=== PATIENT | male | born 1960 | race Caucasian/White ===

== ENCOUNTER → 2016-08-31 | Emergency (ER) | payer OTHER ==
[~2016-08-31] VITALS: Ht 177.8 cm; Wt 90.7 kg
[~2016-08-31] MED LIST: BACL10TA PO; CITA10TA70 PO; LORazepam 0.5 MG TAB PO ONE; MELO-85 PO; METF500T PO; NAPR-591 PO; NITR-48 PO; OLAN2.5T32 PO; OLANZapine 5 MG TAB PO ONE; TRAZ100T2 PO
[2016-08-31 22:31] LABS: Basophils # (auto) 0.1 uL; Basophils % (auto) 1.3 % (0.0-2.0); Eosinophils # (auto) 0.2 uL; Eosinophils % (auto) 2.4 % (0.0-7.0); Hematocrit 44.2 % (41.0-53.0); Hemoglobin 14.4 g/dL (13.5-17.5); Lymphocytes # (auto) 2.4 uL; Lymphocytes % (auto) 31.9 % (10.0-50.0); Mean Corpuscular Hemoglobin 28.1 pg (28.0-32.0); Mean Corpuscular Hgb Conc. 32.5 g/dL (32.0-36.0); Mean Corpuscular Volume 86.5 fL (80.0-100.0); Mean Platelet Volume 8.2 fL (7.4-10.4); Monocytes # (auto) 0.7 uL; Monocytes % (auto) 9.9 % (0.0-12.0); Neutrophils % (auto) 54.5 % (37.0-80.0); Platelet Count (auto) 353 10^3/uL (140-450); Red Cell Distribution Width 17.6 % (11.6-16.0); White Blood Cell 7.4 10^3/uL (4.4-10.8)
[2016-08-31 22:39] LABS: Urine Bilirubin Negative (Negative); Urine Blood Negative /uL (Negative); Urine Color Yellow (Yellow); Urine Glucose Normal (Normal); Urine Ketone Negative (Negative); Urine Mucus FEW (None Seen); Urine Nitrite Negative (Negative); Urine RBC 3 /hpf (0 - 3); Urine Squamous Epithelial Cell FEW /hpf (<5); Urine Urobilinogen Normal (Negative); Urine pH 7.5 (5.0-8.0)
[2016-08-31 22:53] LABS: Acetaminophen < 2.0 ug/mL (10-30); Albumin 3.6 g/dL (3.4-5.0); Alkaline Phosphatase 95 U/L (45-117); Anion Gap 10 (5-15); Aspartate Aminotransferase 28 U/L (15-37); BUN/Creatinine Ratio 7.5; Bilirubin, Total 0.2 mg/dL (0.2-1.0); Blood Urea Nitrogen 8 mg/dL (7-18); Carbon Dioxide 27 mmol/L (21-32); Chloride 103 mmol/L (98-107); GFR African American 92 mL/min; GFR Non-African American 76 mL/min; Glucose 97 mg/dL (74-106); Potassium 3.9 mmol/L (3.5-5.1); Sodium 140 mmol/L (136-145); Total Protein 7.9 g/dL (6.4-8.2)
[2016-09-03 21:58] VITALS: BP 128/79
== END | disposition home or self-care (01) ==
LOC: ER 21:12
DX: F32.9 Major depressive disorder, single episode, unspecified (principal); F20.9 Schizophrenia, unspecified
CPT/HCPCS: 36415; 80053; 80320; 80329; 81001; 85025; 99284; G0434

== ENCOUNTER 2016-10-14 17:01 | Emergency (ER) | payer OTHER ==
[~2016-10-14] VITALS: Ht 177.8 cm; Wt 90.7 kg
[~2016-10-14 17:01] MED LIST changes: -LORazepam 0.5 MG TAB PO ONE; -NAPR-591 PO; -OLANZapine 5 MG TAB PO ONE
[2016-10-14 18:37] LABS: Basophils # (auto) 0.1 uL; Basophils % (auto) 1.2 % (0.0-2.0); Eosinophils # (auto) 0 uL; Eosinophils % (auto) 0.3 % (0.0-7.0); Hematocrit 45.6 % (41.0-53.0); Hemoglobin 14.9 g/dL (13.5-17.5); Lymphocytes # (auto) 1.7 uL; Lymphocytes % (auto) 17.2 % (10.0-50.0); Mean Corpuscular Hemoglobin 27.9 pg (28.0-32.0); Mean Corpuscular Hgb Conc. 32.7 g/dL (32.0-36.0); Mean Corpuscular Volume 85.4 fL (80.0-100.0); Mean Platelet Volume 8.2 fL (7.4-10.4); Monocytes # (auto) 0.7 uL; Monocytes % (auto) 7.4 % (0.0-12.0); Neutrophils # (auto) 7.1 uL; Neutrophils % (auto) 73.9 % (37.0-80.0); Platelet Count (auto) 284 10^3/uL (140-450); Red Cell Distribution Width 16.4 % (11.6-16.0); White Blood Cell 9.6 10^3/uL (4.4-10.8)
[2016-10-14 18:55] LABS: Salicylate 1.9 mg/dL (2.8-20.0)
[2016-10-14 18:56] LABS: Acetaminophen < 2.0 ug/mL (10-30)
[2016-10-14 18:59] LABS: Albumin 3.9 g/dL (3.4-5.0); BUN/Creatinine Ratio 9.4; Bilirubin, Total 0.3 mg/dL (0.2-1.0); Potassium 3.8 mmol/L (3.5-5.1)
[2016-10-15] MEDS ORDERED: MVI in SODIUM CHLORIDE 0.9% 1,010 ML IV ONE (04:12)
[2016-10-15] MEDS ORDERED: THIAMINE HCL 100 MG/ML 2ML VIAL IV ONE (04:15)
[2016-10-15] MEDS: MAGNESIUM SULFATE 1GM/100ML 100 ML IV SCH ×2 (04:52→05:15)
[2016-10-16] MEDS ORDERED: LORazepam 0.5 MG TAB PO ONE (15:45)
[2016-10-17] MEDS ORDERED: ACETAMINOPHEN/CODEINE#3 (300/30mg) TAB PO ONE (23:30)
[2016-10-18 11:30] VITALS: BP 136/84
== END 2016-10-18 11:32 | disposition home or self-care (01) ==
LOC: EDBD 17:01 → ER 17:11
DX: R45.851 Suicidal ideations (principal); F32.9 Major depressive disorder, single episode, unspecified; F10.120 Alcohol abuse with intoxication, uncomplicated; F41.9 Anxiety disorder, unspecified; F15.10 Other stimulant abuse, uncomplicated; F20.89 Other schizophrenia
CPT/HCPCS: 36415; 80053; 80307; 80320; 80329; 85025; 96361; 96374; 99285; J3411; J3475; J7030

== ENCOUNTER 2016-10-30 18:22 | Emergency (ER) | payer OTHER ==
[~2016-10-30] VITALS: Ht 177.8 cm; Wt 90.7 kg
[2016-10-30 19:57] LABS: Basophils # (auto) 0.1 uL; Basophils % (auto) 1.1 % (0.0-2.0); Eosinophils # (auto) 0 uL; Eosinophils % (auto) 0.3 % (0.0-7.0); Hematocrit 45.3 % (41.0-53.0); Hemoglobin 15.2 g/dL (13.5-17.5); Lymphocytes # (auto) 2.4 uL; Mean Corpuscular Hemoglobin 28.5 pg (28.0-32.0); Mean Corpuscular Hgb Conc. 33.4 g/dL (32.0-36.0); Mean Corpuscular Volume 85.3 fL (80.0-100.0); Mean Platelet Volume 8.2 fL (7.4-10.4); Monocytes # (auto) 0.8 uL; Monocytes % (auto) 7.1 % (0.0-12.0); Neutrophils # (auto) 7.6 uL; Neutrophils % (auto) 69.5 % (37.0-80.0); Platelet Count (auto) 425 10^3/uL (140-450); Red Cell Distribution Width 16.4 % (11.6-16.0); White Blood Cell 10.9 10^3/uL (4.4-10.8)
[2016-10-30 20:32] LABS: Albumin 4.4 g/dL (3.4-5.0); Alkaline Phosphatase 91 U/L (45-117); Anion Gap 13 (5-15); Aspartate Aminotransferase 56 U/L (15-37); BUN/Creatinine Ratio 12.8; Bilirubin, Total 0.9 mg/dL (0.2-1.0); Blood Urea Nitrogen 12 mg/dL (7-18); Calcium 9.1 mg/dL (8.5-10.1); Carbon Dioxide 20 mmol/L (21-32); Chloride 101 mmol/L (98-107); GFR African American 107 mL/min; GFR Non-African American 88 mL/min; Glucose 93 mg/dL (74-106); Potassium 3.7 mmol/L (3.5-5.1); Sodium 134 mmol/L (136-145); Total Protein 8.7 g/dL (6.4-8.2)
[2016-10-30] MEDS ORDERED: diphenhdrAMINE HCL 50 MG/1 ML VL ONE (21:05)
[2016-10-30] MEDS ORDERED: HALOPERIDOL LACTATE 5 MG/ML INJ VIAL ONE (21:05)
[2016-10-30] MEDS ORDERED: LORazepam 2MG/ML-1ML VIAL ONE (21:05)
[2016-10-30] MEDS ORDERED: diphenhdrAMINE HCL 50 MG/1 ML VL IM ONE (21:30)
[2016-10-30] MEDS ORDERED: LORazepam 2MG/ML-1ML VIAL IM ONE (21:30)
[2016-10-30] MEDS ORDERED: HALOPERIDOL LACTATE 5 MG/ML INJ VIAL IM ONE (21:30)
[2016-10-31 08:05] VITALS: BP 143/69
== END 2016-10-31 08:10 | disposition home or self-care (01) ==
LOC: EDBD 18:22 → ER 18:30
DX: F41.9 Anxiety disorder, unspecified (principal); I25.10 Atherosclerotic heart disease of native coronary artery without angina pectoris; E11.9 Type 2 diabetes mellitus without complications; I10 Essential (primary) hypertension; F15.10 Other stimulant abuse, uncomplicated; R45.1 Restlessness and agitation; Z79.899 Other long term (current) drug therapy; R52 Pain, unspecified
CPT/HCPCS: 36415; 71020; 80053; 84484; 85025; 93005; 96372; 99285; J1200; J1630; J2060

== ENCOUNTER 2016-11-01 20:45 | Emergency (ER) | payer OTHER ==
[~2016-11-01] VITALS: Ht 177.8 cm; Wt 90.7 kg
[2016-11-01 22:00] LABS: Basophils # (auto) 0.1 uL; Eosinophils # (auto) 0.1 uL; Eosinophils % (auto) 1.1 % (0.0-7.0); Lymphocytes # (auto) 1.8 uL; Lymphocytes % (auto) 16.4 % (10.0-50.0); Mean Corpuscular Hemoglobin 28.2 pg (28.0-32.0); Mean Corpuscular Hgb Conc. 32.6 g/dL (32.0-36.0); Mean Corpuscular Volume 86.5 fL (80.0-100.0); Mean Platelet Volume 8.7 fL (7.4-10.4); Monocytes # (auto) 1.2 uL; Monocytes % (auto) 10.7 % (0.0-12.0); Neutrophils # (auto) 7.8 uL; Neutrophils % (auto) 70.8 % (37.0-80.0); Platelet Count (auto) 493 10^3/uL (140-450); Red Cell Distribution Width 16.6 % (11.6-16.0)
[2016-11-01 22:15] LABS: Amylase 40 U/L (25-115); Anion Gap 15 (5-15); Aspartate Aminotransferase 78 U/L (15-37); BUN/Creatinine Ratio 13.8; Blood Urea Nitrogen 15 mg/dL (7-18); Calcium 9.4 mg/dL (8.5-10.1); Carbon Dioxide 16 mmol/L (21-32); Chloride 110 mmol/L (98-107); GFR African American 90 mL/min; GFR Non-African American 74 mL/min; Glucose 119 mg/dL (74-106); Potassium 4.4 mmol/L (3.5-5.1); Sodium 141 mmol/L (136-145)
[2016-11-01 22:21] LABS: Alkaline Phosphatase 90 U/L (45-117); Bilirubin, Total 0.9 mg/dL (0.2-1.0); Total Protein 8.7 g/dL (6.4-8.2)
[2016-11-01 22:53] VITALS: BP 139/86
[2016-11-01] MEDS ORDERED: SODIUM CHLORIDE 0.9% 1,000 ML IV ONE (23:10)
== END 2016-11-02 01:17 | disposition home or self-care (01) ==
LOC: ER 20:45
DX: K29.70 Gastritis, unspecified, without bleeding (principal); I25.10 Atherosclerotic heart disease of native coronary artery without angina pectoris; E11.9 Type 2 diabetes mellitus without complications; I10 Essential (primary) hypertension; F15.10 Other stimulant abuse, uncomplicated; Z79.899 Other long term (current) drug therapy
CPT/HCPCS: 36415; 74176; 80053; 80320; 82150; 83690; 84484; 85025; 93005; 99285; J7030

== ENCOUNTER 2020-01-20 10:47 | Emergency (ER) | payer OTHER ==
[~2020-01-20] VITALS: Ht 177.8 cm; Wt 79.4 kg
[~2020-01-20 10:47] MED LIST changes: -MELO-85 PO; +MELO1TAB73 PO; -NITR-48 PO; +NITR-87 PO; -OLAN2.5T32 PO; +OLAN2.5T38 PO; -TRAZ100T2 PO; +TRAZ100T3 PO
[2020-01-20] MEDS ORDERED: SODIUM CHLORIDE 0.9% 1,000 ML IV ONE ×2 (10:55)
[2020-01-20 11:49] LABS: Basophils # (auto) 0.1 10 ^3/uL (0-0.2); Basophils % (auto) 0.6 % (0.0-2.0); Eosinophils # (auto) 0.1 10 ^3/uL (0-0.8); Eosinophils % (auto) 1.3 % (0.0-7.0); Hemoglobin 13.3 g/dL (13.5-17.5); Lymphocytes % (auto) 21.3 % (10.0-50.0); Mean Corpuscular Hemoglobin 28.1 pg (28.0-32.0); Mean Corpuscular Hgb Conc. 32.5 g/dL (32.0-36.0); Mean Corpuscular Volume 86.6 fL (80.0-100.0); Monocytes # (auto) 1.5 10 ^3/uL (0-1.3); Monocytes % (auto) 15.8 % (0.0-12.0); Neutrophils # (auto) 5.8 10 ^3/uL (1.6-8.6); Platelet Count (auto) 266 10^3/uL (140-450); Red Blood Cells 4.74 10^6/uL (4.5-5.90); Red Cell Distribution Width 14.5 % (11.8-14.3); White Blood Cell 9.6 10^3/uL (4.4-10.8)
[2020-01-20 12:08] LABS: Albumin 3.8 g/dL (3.4-5.0); Anion Gap 10 (5-15); Blood Urea Nitrogen 12 mg/dL (7-18); Calcium 8.7 mg/dL (8.5-10.1); Carbon Dioxide 20 mmol/L (21-32); Chloride 105 mmol/L (98-107); Glucose 87 mg/dL (74-106); Sodium 135 mmol/L (136-145)
[2020-01-20 12:13] LABS: Alanine Aminotransferase 36 U/L (16-61); Alkaline Phosphatase 89 U/L (45-117); Aspartate Aminotransferase 44 U/L (15-37); BUN/Creatinine Ratio 11.3; Bilirubin, Total 0.3 mg/dL (0.2-1.0); GFR African American 92 mL/min; GFR Non-African American 76 mL/min; Total Protein 7.2 g/dL (6.4-8.2)
[2020-01-20] MEDS ORDERED: HYDROcodone-ACET 5/325MG TAB PO ONE (17:00)
[2020-01-20 19:34] VITALS: BP 144/87
== END 2020-01-20 19:35 | disposition home or self-care (01) ==
LOC: ER 10:47 → EDBD 10:47 → ER 19:35
DX: R00.0 Tachycardia, unspecified (principal); F41.9 Anxiety disorder, unspecified; F15.10 Other stimulant abuse, uncomplicated; E11.9 Type 2 diabetes mellitus without complications; I10 Essential (primary) hypertension; Z86.73 Personal history of transient ischemic attack (TIA), and cerebral infarction without residual deficits
CPT/HCPCS: 36415; 71045; 80053; 83880; 84484; 85025; 93005; 96360; 96361; 99285; J7030

== ENCOUNTER 2020-01-25 21:20 | Emergency (ER) | payer MEDICAID, OTHER ==
[~2020-01-25] VITALS: Ht 177.8 cm; Wt 79.4 kg
[2020-01-26 01:56] LABS: Basophils # (auto) 0.1 10 ^3/uL (0-0.2); Eosinophils # (auto) 0.4 10 ^3/uL (0-0.8); Eosinophils % (auto) 5.6 % (0.0-7.0); Hematocrit 38.6 % (41.0-53.0); Hemoglobin 12.7 g/dL (13.5-17.5); Lymphocytes # (auto) 2.1 10 ^3/uL (0.4-5.4); Lymphocytes % (auto) 29.6 % (10.0-50.0); Mean Corpuscular Hemoglobin 28.1 pg (28.0-32.0); Mean Corpuscular Hgb Conc. 32.9 g/dL (32.0-36.0); Mean Corpuscular Volume 85.2 fL (80.0-100.0); Monocytes % (auto) 14.4 % (0.0-12.0); Neutrophils # (auto) 3.4 10 ^3/uL (1.6-8.6); Neutrophils % (auto) 49.4 % (37.0-80.0); Platelet Count (auto) 360 10^3/uL (140-450); Red Blood Cells 4.53 10^6/uL (4.5-5.90); Red Cell Distribution Width 13.9 % (11.8-14.3)
[2020-01-26 02:14] LABS: Acetaminophen < 2.0 ug/mL (10-30); Salicylate < 1.7 mg/dL (2.8-20.0)
[2020-01-26 02:15] LABS: Albumin 3.7 g/dL (3.4-5.0); Calcium 8.4 mg/dL (8.5-10.1); Potassium 3.9 mmol/L (3.5-5.1)
[2020-01-26 02:18] LABS: BUN/Creatinine Ratio 10.7
[2020-01-26 02:20] LABS: Bilirubin, Total 0.2 mg/dL (0.2-1.0); Total Protein 7.5 g/dL (6.4-8.2)
[2020-01-26 03:12] LABS: Urine Bacteria FEW /hpf (None Seen); Urine Blood TRACE /uL (Negative); Urine Hyaline Cast FEW /lpf (0 - 2); Urine Mucus FEW (None Seen); Urine WBC 13 /hpf (0 - 3)
[2020-01-26 03:23] LABS: Amphetamine Screen, Urine POSITIVE (NEGATIVE); Barbiturate Scree,Urine NEGATIVE (NEGATIVE); Benzodiazephine Screen, Urine NEGATIVE (NEGATIVE); Cannabinoid Screen, Urine NEGATIVE (NEGATIVE); Cocaine Screen, Urine NEGATIVE (NEGATIVE); Opiate Scree,Urine NEGATIVE (NEGATIVE); Phencyclidine Screen, Urine NEGATIVE (NEGATIVE)
[2020-01-26] MEDS ORDERED: LORazepam 2MG/ML-1ML VIAL IM ONE (14:30)
[2020-01-26] MEDS ORDERED: HALOPERIDOL LACTATE 5 MG/ML INJ VIAL IM ONE (14:30)
[2020-01-27] MEDS ORDERED: LORazepam 0.5 MG TAB PO ONE (11:00)
[2020-01-27] MEDS: LORazepam 0.5 MG TAB PO SCH ×2 (14:00→22:32)
[2020-01-27] MEDS: FOLIC ACID 1 MG TAB PO SCH (22:31)
[2020-01-27] MEDS: THIAMINE HCL 100 MG TAB PO SCH (22:31)
[2020-01-27] MEDS: risperiDONE 1 MG TAB PO SCH (22:32)
[2020-01-28] MEDS: LORazepam 0.5 MG TAB PO SCH ×2 (07:45→14:28)
[2020-01-28] MEDS: risperiDONE 1 MG TAB PO SCH (10:07)
[2020-01-28] MEDS: CIPROFLOXACIN HCL 500 MG TAB PO SCH (10:07)
[2020-01-28] MEDS: THIAMINE HCL 100 MG TAB PO SCH (10:07)
[2020-01-28] MEDS: FOLIC ACID 1 MG TAB PO SCH (10:07)
[2020-01-28] MEDS ORDERED: ACETAMINOPHEN 500 MG TAB PO ONE (16:15)
[2020-01-29] MEDS: FOLIC ACID 1 MG TAB PO SCH ×3 (01:47→21:49)
[2020-01-29] MEDS: LORazepam 0.5 MG TAB PO SCH ×4 (01:48→21:49)
[2020-01-29] MEDS: CIPROFLOXACIN HCL 500 MG TAB PO SCH ×3 (01:48→21:50)
[2020-01-29] MEDS: THIAMINE HCL 100 MG TAB PO SCH ×3 (01:48→21:49)
[2020-01-29] MEDS: risperiDONE 1 MG TAB PO SCH ×3 (01:48→21:50)
[2020-01-29] MEDS ORDERED: LORazepam 0.5 MG TAB ONE (06:23)
[2020-01-29] MEDS ORDERED: ACETAMINOPHEN/CODEINE#3 (300/30mg) TAB PO ONE (20:45)
[2020-01-29] MEDS ORDERED: CYCLOBENZAPRINE HCL 10 MG TAB PO ONE (21:00)
[2020-01-30] MEDS: LORazepam 0.5 MG TAB PO SCH (06:31)
[2020-01-30] MEDS: CIPROFLOXACIN HCL 500 MG TAB PO SCH (10:21)
[2020-01-30] MEDS: THIAMINE HCL 100 MG TAB PO SCH (10:21)
[2020-01-30] MEDS: risperiDONE 1 MG TAB PO SCH (10:21)
[2020-01-30] MEDS: FOLIC ACID 1 MG TAB PO SCH (10:21)
[2020-01-30 13:03] VITALS: BP 127/78
== END 2020-01-30 13:15 | disposition short-term general hospital (02) ==
LOC: ER 21:20
DX: R45.851 Suicidal ideations (principal); F10.129 Alcohol abuse with intoxication, unspecified; F19.10 Other psychoactive substance abuse, uncomplicated; F32.9 Major depressive disorder, single episode, unspecified; E11.9 Type 2 diabetes mellitus without complications; I10 Essential (primary) hypertension; Y90.9 Presence of alcohol in blood, level not specified
CPT/HCPCS: 36415; 80053; 80307; 80320; 80329; 81001; 85025; 87426; 96372; 99285; J1630; J2060